=== PATIENT | female | born 1980 | race Two or more races ===

== ENCOUNTER 2017-02-19 02:05 | Inpatient (IN) | payer OTHER ==
[2017-02-19] MEDS ORDERED: CARBOPROST TROMETHAMINE 250 MCG/ML 1 ML AMP IM PRN (02:48)
[2017-02-19] MEDS ORDERED: OXYTOCIN 10 UNIT/ML 1 ML VIAL IM PRN (02:48)
[2017-02-19] MEDS ORDERED: METHYLERGONOVINE 0.2 MG/ML 1 ML AMP IM PRN (02:48)
[2017-02-19] MEDS ORDERED: TERBUTALINE 1 MG/ML VIAL SQ PRN (02:48)
[2017-02-19] MEDS ORDERED: LIDOCAINE 1% (PF) 10 MG/ML (30 ML SDV) SQ PRN (02:48)
[2017-02-19] MEDS: LACTATED RINGERS 1,000 ML IV SCH ×6 (03:00→21:06)
[2017-02-19 03:07] LABS: Basophils % (A) 0 %; CH 28.6; CHCM 32.6; Eosinophils # (A) 0.1 k/uL (0-0.7); Eosinophils % (A) 1 %; HCT 39.6 % (34.0-46.0); HDW 2.54; Luc % (Auto) 2; Lymphocytes # (A) 1.4 k/uL (1.0-4.8); Lymphocytes % (A) 13 %; MCH 28.8 pg (25.0-35.0); MCHC 32.7 g/dL (31.0-37.0); MCV 87.9 fL (80.0-100.0); Mean Platelet Volume 7.3; Monocytes # (A) 0.6 k/uL (0-1.0); Monocytes % (A) 5 %; Neutrophils # (A) 8.5 k/uL (1.3-7.7); Neutrophils % (A) 79 %; RBC 4.51 m/uL (3.80-5.40); RDW 14.3 % (11.5-15.5); WBC 10.8 k/uL (3.8-10.6); WBC (Perox) 10.66
--- NOTE | 2017-02-19 03:32 | P.HPOB ---
History of Present Illness H&P Date: 02/19/17 Chief Complaint: Contractions This is a 37-year-old 2 para 0010 woman with an estimated due date of based on LMP consistent with first trimester ultrasound. She presents at 39-6/7 weeks' gestation with regular painful uterine contractions. She also describes bleeding like a period type flow. She denies leakage of fluids. She has recently transferred care from [place]. Review of records reveals an uncomplicated . Upon initial evaluation on labor and delivery triage her cervix is 2+ centimeters dilated and over a period of observation she progresses to 3+ centimeters dilated. She was therefore admitted in labor. No evidence of active bleeding. Obstetric history: Significant for early first trimester miscarriage. Laboratory data blood type B positive, antibody screen negative, rubella immune , VDRL nonreactive, hepatitis B surface antigen negative, HIV negative, diabetes screen negative, group B strep negative. Review of Systems All systems: negative Past Medical History Past Medical History: No Reported History History of Any Multi-Drug Resistant Organisms: None Reported Past Surgical History: No Surgical Hx Reported Past Anesthesia/Blood Transfusion Reactions: No Reported Reaction Past Psychological History: No Psychological Hx Reported Smoking Status: Never smoker Past Alcohol Use History: None Reported Past Drug Use History: None Reported Medications and Allergies Home Medications Medication Instructions Recorded Confirmed Type Pnv No.95/Ferrous Fum/Folic AC 1 each PO DAILY 02/19/17 02/19/17 History [ Multivitamin Tablet] Allergies Allergy/AdvReac Type Severity Reaction Status Date / Time No Known Allergies Allergy Verified 02/19/17 02:07 Exam - Vital Signs Vital signs: Intake and Output 02/18/17 02/18/17 02/19/17 14:59 22:59 06:59 Other: Weight 79.832 kg Patient Weight 02/19/17 06:59 Weight 79.832 kg This is a pleasant, visibly gravid, -[place]ames[place] female. Targeted physical exam is performed. The abdomen is gravid, soft and nontender. She has palpable moderate irregular contractions. On pelvic examination the cervix is 3 + centimeters dilated, 70% effaced and the vertex is in the -2 station. Amniotic membranes palpable. No active bleeding noted. heart tones are reassuring by external monitoring. She is alexandru irregularly every 3 -5 minutes. Results Result Diagrams: 02/19/17 03:00 Abnormal Lab Results - Last 24 Hours (Table) 02/19/17 Range/Units 03:00 WBC 10.8 H (3.8-10.6) k/uL Neutrophils # 8.5 H (1.3-7.7) k/uL Assessment and Plan (1) Advanced maternal age (AMA) in Status: Acute (2) Spontaneous onset of labor Status: Acute (3) 39 weeks gestation of Status: Acute Plan: This is a 37-year-old 2 para 0010 woman who presents at 39-6/7 weeks gestation in spontaneous active labor. She reports episode of vaginal bleeding however no evidence of active vaginal bleeding upon admission. status is reassuring. She is group B strep negative and Rh+. Admitted in labor. Expectant management.
[2017-02-19] MEDS ORDERED: MORPHINE SULFATE (PF) 0.3 MG/0.3 ML SYR ONE (05:49)
[2017-02-19] MEDS ORDERED: OXYTOCIN 10 UNIT/ML 1 ML VIAL ONE (05:49)
[2017-02-19] MEDS ORDERED: ONDANSETRON 4 MG/2 ML VIAL ONE (05:49)
[2017-02-19] MEDS ORDERED: KETOROLAC 30 MG/ML 1 ML VIAL ONE (05:49)
[2017-02-19] MEDS ORDERED: NALBUPHINE 10 MG/ML AMPUL ONE (05:49)
[2017-02-19] MEDS ORDERED: Acetaminophen-Codeine 300-30mg TAB PO PRN ×2 (06:44)
[2017-02-19] MEDS ORDERED: ZOLPIDEM 5 MG TAB PO PRN (06:44)
[2017-02-19] MEDS ORDERED: ACETAMINOPHEN TAB 325 MG TAB PO PRN (06:44)
[2017-02-19] MEDS ORDERED: METOCLOPRAMIDE 5 MG/ML 2 ML VIAL IVP PRN (06:44)
[2017-02-19] MEDS ORDERED: NALOXONE 0.4 MG/ML 1 ML VIAL IV PRN (06:44)
[2017-02-19] MEDS ORDERED: ONDANSETRON 4 MG/2 ML VIAL IVP PRN (06:44)
[2017-02-19] MEDS ORDERED: diphenhydrAMINE 50 MG CAP PO PRN (06:44)
[2017-02-19] MEDS ORDERED: SIMETHICONE 80 MG CHEWABLE PO PRN (06:44)
[2017-02-19] MEDS ORDERED: diphenhydrAMINE 25 MG CAP PO PRN (06:44)
[2017-02-19] MEDS ORDERED: diphenhydrAMINE 50 MG/ML 1 ML VIAL IVP PRN ×2 (06:44)
--- NOTE | 2017-02-19 06:44 | P.OP ---
Date of Procedure: 02/19/17 Preoperative Diagnosis: at 39-6/7 weeks Thick meconium-stained fluid Nonreassuring heart tones Postoperative Diagnosis: Same Procedure(s) Performed: Primary low transverse section Implants: Anesthesia: spinal Surgeon: Swetha Perales Tabulating Clerk #1: Meghan Rodriguez Estimated Blood Loss (ml): 250 IV fluids (ml): 1,000 Urine output (ml): 250 Pathology: other (placenta) Condition: stable Disposition: floor Indications for Procedure: Is a 37-year-old 2 para 0010 woman who presented at 39-6/7 weeks gestation in spontaneous active labor. Following admission she was approximately 3+ centimeters dilated. She had irregular contraction pattern and overall reassuring heart tones. Unfortunately she did develop on deep heart rate decelerations to approximate 70 bpm that were repetitive in nature. Artificial rupture of membranes was undertaken at this time and thick particulate foul smelling meconium-stained fluid was noted. She remained 3+ centimeters dilated. Based on nonreassuring heart rate tracing and thick meconium-stained fluid remote from delivery the recommendation for primary section was made. This was discussed with the patient and her in detail and all questions were answered. Risks were reviewed and consent was obtained. Operative Findings: Male in the vertex occiput posterior position, Apgars of 8 at 1 minute and 8 at 5 minutes. Weight pending. Thick meconium-stained fluid, and meconium -stained placenta noted. Description of Procedure: After consent was obtained, the patient was taken to the operating room where spinal anesthetic was administered without incident. She was in positioned, prepped and draped in the dorsal supine position with a leftward tilt. After anesthetic was confirmed adequate a low transverse skin incision was made and carried down to the underlying fascia sharply. The fascia was incised in the midline and extended bilaterally with Hui scissors. The inferior and superior aspect of the fascial incision were elevated and the underlying rectus muscles dissected off sharply. The rectus muscles were bluntly in the midline and the peritoneum was tented up, entered sharply with Metzenbaums. The peritoneal incision was extended inferiorly and superiorly with good visualization the bladder. Bladder blade was placed and a low transverse uterine incision was made. This was carried down to the underlying amniotic membranes sharply and bluntly. They thick particulate meconium-stained fluid was encountered. There was a foul odor. The uterine incision was extended bilaterally bluntly. The 's head was delivered from the incision and the nose and mouth were bulb suctioned. The rest the infant was delivered onto the field. Nose and mouth were further bulb suctioned and the infant was taken to the warmer after the cord was clamped and cut. Meconium-stained three-vessel cord placenta was then manually removed. The uterus was exteriorized and cleared of all clot and debris. The uterine incision was delineated using Harrison's and was closed in a running locked fashion with 0 Vicryl suture. A second imbricating layer of the same suture was placed. The uterus was returned to the abdomen and the gutters were cleared of all clot and debris. The uterine incision was reinspected and noted to be hemostatic. Bovie electrocautery was utilized for hemostasis on the rectus muscles. Peritoneal edges and fascial edges were also inspected. The peritoneum was reapproximated in the midline with 0 Vicryl suture. The fascia was then closed in a running fashion with 0 Vicryl suture. The subcuticular tissue was closed with 3-0 Vicryl suture. Subcutaneous tissue was closed with 4-0 Vicryl. All counts reported to me as correct by the operating room staff. Infant was taken to special care nursery for further evaluation. Mother was transported to recovery in good condition.
[2017-02-19] MEDS ORDERED: OXYTOCIN 20 UNITS/1000 ML NS 1,000 ML IV SCH (06:45)
[2017-02-19] MEDS: SENNOSIDES-DOCUSATE SODIUM 1 EACH TAB PO SCH ×2 (07:58→20:12)
[2017-02-19] MEDS: KETOROLAC 30 MG/ML 1 ML VIAL IVP PRN (12:41)
[2017-02-20] MEDS: KETOROLAC 30 MG/ML 1 ML VIAL IVP PRN (03:56)
[2017-02-20 08:02] LABS: Basophils % (A) 0 %; CH 29.2; CHCM 32.7; Eosinophils # (A) 0.1 k/uL (0-0.7); Eosinophils % (A) 0 %; HCT 38.4 % (34.0-46.0); Luc # (Auto) 0.14; Luc % (Auto) 1; Lymphocytes # (A) 1.6 k/uL (1.0-4.8); Lymphocytes % (A) 10 %; MCHC 31.2 g/dL (31.0-37.0); MCV 89.8 fL (80.0-100.0); Mean Platelet Volume 7.9; Monocytes # (A) 0.4 k/uL (0-1.0); Monocytes % (A) 3 %; Neutrophils # (A) 13.6 k/uL (1.3-7.7); Neutrophils % (A) 86 %; RBC 4.28 m/uL (3.80-5.40); RDW 15.3 % (11.5-15.5); WBC 15.8 k/uL (3.8-10.6); WBC (Perox) 15.63
--- NOTE | 2017-02-20 08:22 | P.PNOBGPC ---
Subjective - Subjective Principal diagnosis: IUP @ 39 12/20, NRFHTS remote from delivery Interval history: nidhi is doing well this am. she is s/p LTCS for non reassuring FHTs, remote from delivery. She is ambulating and voiding without difficulty. She states her pain is controlled with oral medication. She denies nausea vomiting and is tolerating regular diet She states her lochia is minimal at this point Patient reports: Reports appetite normal, Reports voiding normally, Reports pain well controlled, Reports ambulating normally [place]: in NICU (Meconium aspiration syndrome) Objective - Vital Signs Latest vital signs: Vital Signs Temp Pulse Resp BP Pulse Ox 02/20/17 06:02 14 02/20/17 04:00 98.5 F 78 16 118/71 02/20/17 02:00 14 97 02/20/17 00:00 98.5 F 77 16 122/67 98 02/19/17 22:00 18 98 02/19/17 20:00 98.4 F 79 16 122/66 97 02/19/17 16:00 98.3 F 70 16 127/72 99 02/19/17 12:33 98.2 F 75 14 128/74 02/19/17 08:43 83 20 122/66 Intake and Output 02/19/17 02/20/17 02/20/17 22:59 06:59 14:59 Intake Total 200 600 Output Total 2000 Balance -1800 600 Intake: Oral 200 Other 600 Output: Urine 2000 Other: # Voids 1 - Exam Extremities: Present: normal Abdomen: Present: normal appearance (Uterus is firm below the umbilicus incision , bandage is dry small amount of shadowing as noted on the right-hand side) Uterus: Present: firm (Appropriate tenderness to palpation) - Labs Labs: Abnormal Lab Results - Last 24 Hours (Table) 02/20/17 Range/Units 07:50 WBC 15.8 H (3.8-10.6) k/uL Neutrophils # 13.6 H (1.3-7.7) k/uL Assessment and Plan (1) delivery delivered Narrative/Plan: Discharge planning is discussed with this patient given the being at [facility]. She is doing well we will monitor today for pain control and most likely discharged tomorrow morning. She will increase ambulation dressing will be removed from her incision today she can shower. Discharge instructions are reviewed with the patient today Current Visit: Yes Status: Acute Code(s): O82 - ENCOUNTER FOR DELIVERY WITHOUT INDICATION SNOMED Code(s): 712230165 (2) 39 weeks gestation of Current Visit: Yes Status: Acute Code(s): Z3A.39 - 39 WEEKS GESTATION OF SNOMED Code(s): 24067821
[2017-02-20] MEDS: SENNOSIDES-DOCUSATE SODIUM 1 EACH TAB PO SCH (09:02)
[2017-02-20 09:06] VITALS: RESP 16; TEMP 98.2
--- NOTE | 2017-02-20 09:09 | P.PN ---
Progress Note - Text Date: 02/20/2017 Time: 710 The patient is status post section Vital signs stable VAS: 0-10 Patient has no complaints of pain. The patient incurred some minimal itching yesterday, this itching is now subsiding. Pain meds to be managed by service.
[2017-02-20] MEDS: IBUPROFEN 600 MG TAB PO PRN ×2 (13:13→18:22)
[2017-02-20 16:17] VITALS: BP 123/76; PULSE 98
--- NOTE | 2017-02-20 17:14 | P.DS ---
Providers Date of admission: 02/19/17 02:43 Expected date of discharge: 02/20/17 Attending physician: Swetha Perales Consults: None Primary care physician: Norma Mackay - Discharge Diagnosis(es) (1) delivery delivered This is a 37-year-old that presented to labor and delivery 02/19/2017 with complaints of contractions on admission patient was 3 cm and progressed and was admitted to labor and delivery. Patient was uncomfortable with contractions with heart tones noted with variables. Artificial rupture of membranes was performed with thick meconium given this finding the recommendation for primary low transverse section was given and patient agreed, informed consent was obtained the patient was taken back to the operating room for further details please see the operative report. Postoperatively the patient has done well her infant was delivered was transferred to [facility] for meconium aspiration and upon examination heart defects "hole in the heart" was diagnosed. She is ambulating and voiding without difficulty. Her pain is controlled and she is tolerating regular diet without nausea or vomiting. Current Visit: Yes Status: Acute (2) 39 weeks gestation of Current Visit: Yes Status: Acute Plan - Discharge Summary New Discharge Prescriptions: No Action Pnv No.95/Ferrous Fum/Folic AC [ Multivitamin Tablet] 1 tab PO DAILY Discharge Medication List Pnv No.95/Ferrous Fum/Folic AC [ Multivitamin Tablet] 1 tab PO DAILY 01/29 [History] Follow up Appointment(s)/Referral(s): Norma Mackay DO [Primary Care Provider] - 1 Week Discharge Disposition: HOME SELF-CARE
== END 2017-02-20 18:45 | disposition home or self-care (01) | DRG 766 ==
LOC: FBPOP 02:05 → 4FBP 02:43
PROVIDERS: ADMIT Obstetrics & Gynecology; ATTEND Obstetrics & Gynecology
PROC: 10D00Z1 Extraction of Products of Conception, Low, Open Approach (ICD-10-PCS; principal; 2017-02-19 05:49)
DX: O77.0 Labor and delivery complicated by meconium in amniotic fluid (principal); O76 Abnormality in fetal heart rate and rhythm complicating labor and delivery; Z37.0 Single live birth; Z3A.39 39 weeks gestation of pregnancy; Z79.899 Other long term (current) drug therapy
CPT/HCPCS: 59025; 85025; 88307; 99213